=== PATIENT | female | born 1990 | race Hispanic/Latino ===

== ENCOUNTER 2017-10-18 22:09 | Emergency (ER) | payer MEDICAID ==
[~2017-10-18 22:09] MED LIST: PHEN300C6 PO
[2017-10-18 22:39] LABS: BASOPHILS % (AUTO) 0.5 % (0.0-5.0); EOSINOPHILS % (AUTO) 0.5 % (0.0-8.0); HEMATOCRIT 36.5 % (36-48); LYMPHOCYTES % (AUTO) 57.3 % (21.0-51.0); MEAN CORPUSCULAR HEMOGLOBIN 28.3 pg (27.0-33.0); MEAN CORPUSCULAR HGB CONC 34.2 g/dL (32.0-36.0); MEAN CORPUSCULAR VOLUME 82.9 fL (79-99); MONOCYTES % (AUTO) 6.7 % (3.0-13.0); NUCLEATED RED BLOOD CELLS 0.1 % (0.0-0.19); PLATELET COUNT (AUTO) 205 K/uL (130-400); RED BLOOD CELL COUNT(AUTO) 4.41 MIL/uL (4.00-5.50); RED CELL DISTRIBUTION WIDTH 12.5 % (11.0-15.5); WHITE BLOOD COUNT (AUTO) 5.4 K/uL (4.8-10.8)
[2017-10-18 22:46] LABS: APPEARANCE,URINE Clear (CLEAR); BILIRUBIN,URINE Negative (NEGATIVE); COLOR,URINE Yellow (YELLOW); GLUCOSE, URINE (UA) Negative (NEGATIVE); HCG,QUAL RESULT NEGATIVE (NEGATIVE); KETONES,URINE Negative (NEGATIVE); LEUKOCYTE ESTERASE ,URINE Trace (NEGATIVE); NITRATE,URINE Negative (NEGATIVE); OCCULT BLOOD,URINE Negative (NEGATIVE); PH,URINE 6.5 (5.0-8.0); PROTEIN,URINE Negative (NEGATIVE)
[2017-10-18 22:52] LABS: CARBON DIOXIDE 31 mmol/L (21-32); CHLORIDE 101 mmol/L (101-111); CREATININE 0.6 mg/dL (0.5-1.5); GLOMERULAR FILTR. RATE CALC 128 mL/min (>60); GLUCOSE,RANDOM 90 mg/dL (70-105); POTASSIUM 3.5 mmol/L (3.5-5.1); SODIUM SERUM 137 mmol/L (136-145); UREA NITROGEN, BLOOD 15 mg/dL (7-18)
[2017-10-18 22:52] LABS: AMPHET/METH SCREEN,URINE NEGATIVE (NEGATIVE); BARBITURATE SCREEN, URINE NEGATIVE (NEGATIVE); BENZODIAZEPINES SCREEN,URINE NEGATIVE (NEGATIVE); CANNABINOID SCREEN,URINE NEGATIVE (NEGATIVE); COCAINE SCREEN,URINE NEGATIVE (NEGATIVE); OPIATE SCREEN,URINE NEGATIVE (NEGATIVE); PHENCYCLIDINE SCREEN,URINE NEGATIVE (NEGATIVE)
[2017-10-18] MEDS ORDERED: ONDANSETRON HCL 4 MG/2 ML VIAL ONE (22:59)
[2017-10-18] MEDS ORDERED: SODIUM CHLORIDE 0.9% 1000ML 1,000 ML IV ONE (22:59)
[2017-10-18 23:03] LABS: ALANINE AMINOTRANSFERASE 90 U/L (12-78); ALBUMIN 3.7 g/dL (3.5-5.0); AMYLASE 45 U/L (25-115); ASPARTATE AMINOTRANSFERASE 59 U/L (10-37); BILIRUBIN,TOTAL 0.4 mg/dL (0.2-1.0); CREATINE KINASE MB < 0.5 ng/mL (0.5-3.6); CREATINE KINASE, TOTAL 55 U/L (21-232); LIPASE 317 U/L (114-286); TOTAL PROTEIN, SERUM 7.7 g/dL (6.0-8.3)
[2017-10-18 23:15] LABS: BACTERIA,URINE Few /HPF (None Seen); MUCUS,URINE Rare LPF (None Seen); RBC,URINE 0-1 /HPF (0-1); WBC,URINE 0-1 /HPF (0-1)
[2017-12-10] MEDS ORDERED: LEVE500T8 PO (16:23)
[2017-12-10] MEDS ORDERED: LEVE1000 PO (16:23)
== END 2017-10-19 01:16 | disposition home or self-care (01) ==
LOC: EDH 22:09
DX: K85.90 Acute pancreatitis without necrosis or infection, unspecified (principal); R11.2 Nausea with vomiting, unspecified; Z98.890 Other specified postprocedural states
CPT/HCPCS: 36415; 74176; 80053; 80177; 80305; 81001; 81025; 82150; 82550; 82553; 83690; 84484; 85025; 87804 ×2; 93005; 96361; 96374; 99285; J2405; J7030

== ENCOUNTER 2017-11-15 23:41 | Emergency (ER) | payer MEDICAID ==
[~2017-11-15 23:41] MED LIST changes: -LEVE1000 PO; -LEVE500T8 PO
[2017-12-10] MEDS ORDERED: LEVE1000 PO (16:23)
[2017-12-10] MEDS ORDERED: LEVE500T8 PO (16:23)
== END 2017-11-16 00:58 | disposition home or self-care (01) ==
LOC: EDH 23:41
DX: J02.8 Acute pharyngitis due to other specified organisms (principal); B97.89 Other viral agents as the cause of diseases classified elsewhere; Z79.2 Long term (current) use of antibiotics; Z79.899 Other long term (current) drug therapy; Z98.890 Other specified postprocedural states
CPT/HCPCS: 76705; 99281

== ENCOUNTER → 2017-11-15 | Outpatient (CLI) | payer MEDICAID ==
[~2017-11-15] MED LIST changes: +LEVE1000 PO; +LEVE500T8 PO
== END | disposition home or self-care (01) ==
LOC: RAH 09:39
PROVIDERS: ATTEND Family Medicine
DX: J01.40 Acute pansinusitis, unspecified (principal); R94.5 Abnormal results of liver function studies
CPT/HCPCS: 76705

== ENCOUNTER 2017-12-11 05:49 | Day surgery (SDC) | payer MEDICAID ==
[~2017-12-11] VITALS: Ht 154.9 cm; Wt 61.2 kg
[~2017-12-11 05:49] MED LIST changes: +LEVE1000 PO; +LEVE500T8 PO; -PHEN300C6 PO
[2017-12-11 06:10] VITALS: BP 104/57
[2017-12-11] MEDS ORDERED: SODIUM CHLORIDE 0.9% 1000ML 1,000 ML IV ONE (06:25)
[2017-12-11] MEDS ORDERED: MIDAZOLAM HCL 1 MG/ML 2ML VIAL ONE ×2 (07:09→07:16)
[2017-12-11] MEDS ORDERED: MEPERIDINE-PF 50 MG/ML SYG ONE (07:09)
[2017-12-11] MEDS ORDERED: PROPOFOL 10 MG/ML 20ML VIAL IV ONE (07:18)
== END 2017-12-11 07:55 ==
LOC: DAH 05:49
PROVIDERS: ATTEND Internal Medicine
DX: K29.50 Unspecified chronic gastritis without bleeding (principal); K21.0 Gastro-esophageal reflux disease with esophagitis; F41.9 Anxiety disorder, unspecified; F32.9 Major depressive disorder, single episode, unspecified; Z79.899 Other long term (current) drug therapy; Z98.890 Other specified postprocedural states; Z90.49 Acquired absence of other specified parts of digestive tract; B96.81 Helicobacter pylori [H. pylori] as the cause of diseases classified elsewhere
CPT/HCPCS: 43239; 81025; 88305; A4606; J2175; J2250 ×2; J2704; J7030

== ENCOUNTER 2018-02-13 01:10 | Emergency (ER) | payer MEDICAID ==
[2018-02-13 01:35] LABS: BILIRUBIN,URINE Negative (NEGATIVE); COLOR,URINE Yellow (YELLOW); GLUCOSE, URINE (UA) Negative (NEGATIVE); KETONES,URINE Negative (NEGATIVE); LEUKOCYTE ESTERASE ,URINE Negative (NEGATIVE); NITRATE,URINE Negative (NEGATIVE); OCCULT BLOOD,URINE Negative (NEGATIVE); PROTEIN,URINE Negative (NEGATIVE)
[2018-02-13 01:36] LABS: APPEARANCE,URINE CLEAR (CLEAR)
[2018-02-13 01:38] LABS: HCG,QUAL RESULT NEGATIVE (NEGATIVE)
[2018-02-13] MEDS ORDERED: ACETAMINOPHEN 325 MG TAB ONE (01:59)
== END 2018-02-13 04:16 | disposition left against medical advice (07) ==
LOC: EDH 01:10
DX: R20.2 Paresthesia of skin (principal); R51 Headache; B96.81 Helicobacter pylori [H. pylori] as the cause of diseases classified elsewhere; Z90.49 Acquired absence of other specified parts of digestive tract; Z98.890 Other specified postprocedural states
CPT/HCPCS: 70450; 81003; 81025

== ENCOUNTER 2018-06-25 17:24 | Emergency (ER) | payer MEDICAID ==
[2018-06-25] MEDS ORDERED: KETOROLAC TROMETHAMINE 30MG/ML ONE (18:13)
[2018-06-25] MEDS ORDERED: CYCLOBENZAPRINE HCL 10 MG TABLET ONE (18:14)
== END 2018-06-25 18:32 | disposition home or self-care (01) ==
LOC: EDH 17:24
DX: S16.1XXA Strain of muscle, fascia and tendon at neck level, initial encounter (principal); R05 Cough; G43.909 Migraine, unspecified, not intractable, without status migrainosus; D49.6 Neoplasm of unspecified behavior of brain; Z90.49 Acquired absence of other specified parts of digestive tract; Z98.890 Other specified postprocedural states; X50.9XXA Other and unspecified overexertion or strenuous movements or postures, initial encounter; Y93.89 Activity, other specified; Y92.89 Other specified places as the place of occurrence of the external cause; Y99.8 Other external cause status
CPT/HCPCS: 96372; 99283; J1885

== ENCOUNTER 2018-07-06 12:11 | Emergency (ER) | payer MEDICAID ==
[2018-07-06 13:08] LABS: APPEARANCE,URINE Clear (CLEAR); BILIRUBIN,URINE Negative (NEGATIVE); COLOR,URINE Yellow (YELLOW); GLUCOSE, URINE (UA) Negative (NEGATIVE); KETONES,URINE Negative (NEGATIVE); LEUKOCYTE ESTERASE ,URINE Negative (NEGATIVE); NITRATE,URINE Negative (NEGATIVE); OCCULT BLOOD,URINE Moderate (NEGATIVE); PROTEIN,URINE Negative (NEGATIVE)
[2018-07-06 13:15] LABS: HCG,QUAL RESULT NEGATIVE (NEGATIVE)
[2018-07-06 13:52] LABS: BASOPHILS % (AUTO) 0.5 % (0.0-5.0); EOSINOPHILS % (AUTO) 0.6 % (0.0-8.0); HEMATOCRIT 37.6 % (36-48); LYMPHOCYTES % (AUTO) 24.7 % (21.0-51.0); MEAN CORPUSCULAR HEMOGLOBIN 29.3 pg (27.0-33.0); MEAN CORPUSCULAR HGB CONC 33.9 g/dL (32.0-36.0); MEAN CORPUSCULAR VOLUME 86.4 fL (79-99); MONOCYTES % (AUTO) 7.2 % (3.0-13.0); PLATELET COUNT (AUTO) 279 K/uL (130-400); RED BLOOD CELL COUNT(AUTO) 4.35 MIL/uL (4.00-5.50); WHITE BLOOD COUNT (AUTO) 5.9 K/uL (4.8-10.8)
[2018-07-06 14:00] LABS: CREATININE 0.6 mg/dL (0.5-1.5)
== END 2018-07-06 14:28 | disposition home or self-care (01) ==
LOC: EDH 12:11
DX: N83.291 Other ovarian cyst, right side (principal); G43.909 Migraine, unspecified, not intractable, without status migrainosus
CPT/HCPCS: 36415; 76856; 80048; 81003; 81025; 85025

== ENCOUNTER 2018-07-29 22:47 | Emergency (ER) | payer MEDICAID ==
[2018-07-29 23:35] LABS: APPEARANCE,URINE Cloudy (CLEAR); BILIRUBIN,URINE Negative (NEGATIVE); COLOR,URINE Yellow (YELLOW); GLUCOSE, URINE (UA) Negative (NEGATIVE); KETONES,URINE Trace mg/dL (NEGATIVE); LEUKOCYTE ESTERASE ,URINE Moderate (NEGATIVE); NITRATE,URINE Negative (NEGATIVE); OCCULT BLOOD,URINE Negative (NEGATIVE); PH,URINE 7.5 (5.0-8.0); PROTEIN,URINE POS 1+ (NEGATIVE)
[2018-07-29 23:42] LABS: HCG,QUAL RESULT NEGATIVE (NEGATIVE)
[2018-07-29 23:46] LABS: BACTERIA,URINE Rare /HPF (None Seen); MUCUS,URINE Moderate LPF (None Seen); RBC,URINE 0-1 /HPF (0-1); SQUAMOUS EPITHELIAL CELL,UR Few /HPF (0-2)
[2018-07-29] MEDS ORDERED: LIDOCAINE HCL MPF 1% 5ML VIAL ONE (23:52)
[2018-07-29] MEDS ORDERED: CEFTRIAXONE SODIUM 1 GM ONE (23:53)
== END 2018-07-30 00:47 | disposition home or self-care (01) ==
LOC: EDH 22:47
DX: N30.00 Acute cystitis without hematuria (principal); G43.909 Migraine, unspecified, not intractable, without status migrainosus; C71.9 Malignant neoplasm of brain, unspecified; B96.81 Helicobacter pylori [H. pylori] as the cause of diseases classified elsewhere; Z90.49 Acquired absence of other specified parts of digestive tract; Z98.890 Other specified postprocedural states
CPT/HCPCS: 81001; 81025; 96372; 99284; J0696; J3490

== ENCOUNTER 2018-11-19 14:57 | Emergency (ER) | payer MEDICAID ==
[2018-11-19] MEDS ORDERED: DiphenhydrAMINE HCL 50 MG/ML VIAL ONE (15:57)
[2018-11-19] MEDS ORDERED: PROCHLORPERAZINE EDISYLATE 10 MG/2 ML VIAL ONE (15:58)
[2018-11-19 16:02] LABS: BASOPHILS % (AUTO) 0.6 % (0.0-5.0); EOSINOPHILS % (AUTO) 0.5 % (0.0-8.0); HEMATOCRIT 33.5 % (36-48); LYMPHOCYTES % (AUTO) 24.9 % (21.0-51.0); MEAN CORPUSCULAR HEMOGLOBIN 28.3 pg (27.0-33.0); MEAN CORPUSCULAR VOLUME 83.2 fL (79-99); MONOCYTES % (AUTO) 6.3 % (3.0-13.0); NEUTROPHILS % (AUTO) 67.7 % (40.0-77.0); PLATELET COUNT (AUTO) 316 K/uL (130-400); RED BLOOD CELL COUNT(AUTO) 4.03 MIL/uL (4.00-5.50); RED CELL DISTRIBUTION WIDTH 13.3 % (11.0-15.5); WHITE BLOOD COUNT (AUTO) 7.4 K/uL (4.8-10.8)
[2018-11-19 16:03] LABS: APPEARANCE,URINE Clear (CLEAR); BILIRUBIN,URINE Negative (NEGATIVE); COLOR,URINE Yellow (YELLOW); GLUCOSE, URINE (UA) Negative (NEGATIVE); KETONES,URINE Negative (NEGATIVE); LEUKOCYTE ESTERASE ,URINE Negative (NEGATIVE); NITRATE,URINE Negative (NEGATIVE); OCCULT BLOOD,URINE Large (NEGATIVE); PROTEIN,URINE Negative (NEGATIVE); UROBILINOGEN,URINE 0.2 mg/dL (0.2-1.0)
[2018-11-19 16:10] LABS: CREATININE 0.6 mg/dL (0.5-1.5); POTASSIUM 3.6 mmol/L (3.5-5.1)
[2018-11-19 16:11] LABS: AMPHET/METH SCREEN,URINE NEGATIVE (NEGATIVE); BARBITURATE SCREEN, URINE NEGATIVE (NEGATIVE); BENZODIAZEPINES SCREEN,URINE NEGATIVE (NEGATIVE); CANNABINOID SCREEN,URINE NEGATIVE (NEGATIVE); COCAINE SCREEN,URINE NEGATIVE (NEGATIVE); OPIATE SCREEN,URINE NEGATIVE (NEGATIVE); PHENCYCLIDINE SCREEN,URINE NEGATIVE (NEGATIVE)
[2018-11-19 16:13] LABS: HCG,QUAL RESULT NEGATIVE (NEGATIVE)
[2018-11-19 16:15] LABS: WBC,URINE 0-1 /HPF (0-1)
[2018-11-19 16:16] LABS: BACTERIA,URINE Rare /HPF (None Seen); RBC,URINE 26-50 /HPF (0-1); SQUAMOUS EPITHELIAL CELL,UR Rare /HPF (0-2)
== END 2018-11-19 17:29 | disposition home or self-care (01) ==
LOC: EDH 14:57
DX: G43.909 Migraine, unspecified, not intractable, without status migrainosus (principal); M54.12 Radiculopathy, cervical region; F41.9 Anxiety disorder, unspecified; Z90.49 Acquired absence of other specified parts of digestive tract; Z98.890 Other specified postprocedural states
CPT/HCPCS: 36415; 80048; 80305; 81001; 81025; 85025; 96374; 96375; 99283; J0780; J1200

== ENCOUNTER 2018-12-15 08:24 | Emergency (ER) | payer MEDICAID | END 2018-12-15 09:12 | disposition home or self-care (01) | LOC: EDH 08:24 | DX: J09.X2 Influenza due to identified novel influenza A virus with other respiratory manifestations (principal); R50.9 Fever, unspecified; F41.9 Anxiety disorder, unspecified; Z90.49 Acquired absence of other specified parts of digestive tract | CPT/HCPCS: 87880 ==

== ENCOUNTER 2019-02-07 13:23 | Emergency (ER) | payer MEDICAID ==
[2019-02-07 14:02] LABS: BILIRUBIN,URINE Negative (NEGATIVE); COLOR,URINE Yellow (YELLOW); GLUCOSE, URINE (UA) Negative (NEGATIVE); KETONES,URINE Negative (NEGATIVE); LEUKOCYTE ESTERASE ,URINE Moderate (NEGATIVE); NITRATE,URINE Negative (NEGATIVE); OCCULT BLOOD,URINE Negative (NEGATIVE); PH,URINE 5.5 (5.0-8.0); PROTEIN,URINE Negative (NEGATIVE)
[2019-02-07 14:17] LABS: APPEARANCE,URINE SLIGHTLY CLOUDY (CLEAR)
[2019-02-07 14:18] LABS: BACTERIA,URINE Moderate /HPF (None Seen)
== END 2019-02-07 14:57 | disposition home or self-care (01) ==
LOC: EDH 13:23
DX: N39.0 Urinary tract infection, site not specified (principal); G43.909 Migraine, unspecified, not intractable, without status migrainosus; F41.9 Anxiety disorder, unspecified; Z90.49 Acquired absence of other specified parts of digestive tract
CPT/HCPCS: 81001; 81025

== ENCOUNTER 2019-09-23 19:34 | Emergency (ER) | payer MEDICAID ==
[~2019-09-23 19:34] MED LIST changes: +LEVE-43 PO; -LEVE500T8 PO
[2019-09-23 20:31] LABS: RAPID GROUP A STREP NEGATIVE (NEGATIVE)
== END 2019-09-23 20:45 | disposition home or self-care (01) ==
LOC: EDH 19:34
DX: J01.00 Acute maxillary sinusitis, unspecified (principal); G43.909 Migraine, unspecified, not intractable, without status migrainosus; F41.9 Anxiety disorder, unspecified
CPT/HCPCS: 87804; 87880

== ENCOUNTER 2019-10-01 06:55 | Day surgery (SDC) | payer MEDICAID ==
[~2019-10-01] VITALS: Ht 160 cm; Wt 60.8 kg
[~2019-10-01 06:55] MED LIST changes: +ACET325C6 PO; +CEFD300C3 PO; -LEVE-43 PO; -LEVE1000 PO; +NEXIUM PO; +SODIUM CHLORIDE 0.9% 1000ML 1,000 ML IV ONE
[2019-10-01 08:27] VITALS: BP 104/64
[2019-10-01] MEDS ORDERED: PROPOFOL 10 MG/ML 20ML VIAL IV ONE (09:33)
[2019-10-01 10:01] VITALS: BP 95/63
[2019-10-01 10:06] VITALS: BP 107/60
[2019-10-01 10:11] VITALS: BP 109/67
[2019-10-01 10:15] VITALS: BP 106/71
[2019-10-01 10:30] VITALS: BP 111/69
== END 2019-10-01 10:40 | disposition home or self-care (01) ==
LOC: DAH 06:55 → ENDO 06:55
PROVIDERS: ATTEND Internal Medicine
DX: K59.00 Constipation, unspecified (principal); K31.89 Other diseases of stomach and duodenum; K64.0 First degree hemorrhoids; B96.81 Helicobacter pylori [H. pylori] as the cause of diseases classified elsewhere; K29.70 Gastritis, unspecified, without bleeding; K21.0 Gastro-esophageal reflux disease with esophagitis; F41.9 Anxiety disorder, unspecified; F32.9 Major depressive disorder, single episode, unspecified; G40.909 Epilepsy, unspecified, not intractable, without status epilepticus; Z79.899 Other long term (current) drug therapy; Z98.890 Other specified postprocedural states; Z90.49 Acquired absence of other specified parts of digestive tract
CPT/HCPCS: 43239; 45378; 81025; 88305; A4215; A4221; A4222; A4223; A4606; A4615; A4663; J2704; J7030; 45380

== ENCOUNTER 2020-02-09 16:06 | Emergency (ER) | payer MEDICAID ==
[~2020-02-09 16:06] MED LIST changes: -SODIUM CHLORIDE 0.9% 1000ML 1,000 ML IV ONE
[2020-02-09] MEDS ORDERED: SODIUM CHLORIDE IRRIG SOLUTION 1,000 ML IR ONE (16:07)
[2020-02-09 17:19] LABS: BASOPHILS % (AUTO) 0.7 % (0.0-5.0); EOSINOPHILS % (AUTO) 3.9 % (0.0-8.0); HEMATOCRIT 36.4 % (36-48); LYMPHOCYTES % (AUTO) 31.1 % (21.0-51.0); MEAN CORPUSCULAR HEMOGLOBIN 28.3 pg (27.0-33.0); MEAN CORPUSCULAR HGB CONC 33.8 g/dL (32.0-36.0); MEAN CORPUSCULAR VOLUME 83.9 fL (79-99); MONOCYTES % (AUTO) 5.1 % (3.0-13.0); PLATELET COUNT (AUTO) 307 K/uL (130-400); RED BLOOD CELL COUNT(AUTO) 4.34 MIL/uL (4.00-5.50); RED CELL DISTRIBUTION WIDTH 13.2 % (11.0-15.5); WHITE BLOOD COUNT (AUTO) 5.9 K/uL (4.8-10.8)
[2020-02-09 17:34] LABS: APPEARANCE,URINE CLOUDY (CLEAR); BILIRUBIN,URINE NEGATIVE (NEGATIVE); COLOR,URINE RED (YELLOW); GLUCOSE, URINE (UA) NEGATIVE (NEGATIVE); KETONES,URINE NEGATIVE (NEGATIVE); LEUKOCYTE ESTERASE ,URINE NEGATIVE (NEGATIVE); NITRATE,URINE NEGATIVE (NEGATIVE); OCCULT BLOOD,URINE LARGE (NEGATIVE); PROTEIN,URINE NEGATIVE (NEGATIVE); UROBILINOGEN,URINE 0.2 mg/dL (0.2-1.0)
[2020-02-09 17:38] LABS: BACTERIA,URINE Rare /HPF (None Seen); CREATININE 0.8 mg/dL (0.5-1.5); POTASSIUM 3.5 mmol/L (3.5-5.1); RBC,URINE TNTC /HPF (0-1); SQUAMOUS EPITHELIAL CELL,UR Rare /HPF (0-2); WBC,URINE 0-1 /HPF (0-1)
[2020-02-09] MEDS ORDERED: ONDANSETRON HCL 4 MG/2 ML VIAL ONE (17:40)
[2020-02-09 17:43] LABS: ALBUMIN 4.2 g/dL (3.5-5.0); AMPHET/METH SCREEN,URINE NEGATIVE (NEGATIVE); BARBITURATE SCREEN, URINE NEGATIVE (NEGATIVE); BENZODIAZEPINES SCREEN,URINE NEGATIVE (NEGATIVE); BILIRUBIN,TOTAL 0.5 mg/dL (0.2-1.0); CANNABINOID SCREEN,URINE NEGATIVE (NEGATIVE); COCAINE SCREEN,URINE NEGATIVE (NEGATIVE); OPIATE SCREEN,URINE NEGATIVE (NEGATIVE); PHENCYCLIDINE SCREEN,URINE NEGATIVE (NEGATIVE); TOTAL PROTEIN, SERUM 8.1 g/dL (6.0-8.3)
[2020-02-09] MEDS ORDERED: KETOROLAC TROMETHAMINE 30MG/ML ONE (17:47)
[2020-02-09 17:54] LABS: RAPID GROUP A STREP NEGATIVE (NEGATIVE)
== END 2020-02-09 18:45 | disposition home or self-care (01) ==
LOC: EDH 16:06
DX: K59.00 Constipation, unspecified (principal); N20.0 Calculus of kidney; F41.9 Anxiety disorder, unspecified; G43.909 Migraine, unspecified, not intractable, without status migrainosus; Z90.49 Acquired absence of other specified parts of digestive tract
CPT/HCPCS: 36415; 71046; 74176; 80053; 80305; 81001; 81025; 85025; 87804 ×2; 87880; 96374; 96375; 99285; J1885; J2405

== ENCOUNTER → 2020-02-16 | Outpatient (CLI) | payer MEDICAID | END | disposition home or self-care (01) | LOC: OIH 11:36 | PROVIDERS: ATTEND Family Medicine | DX: K59.04 Chronic idiopathic constipation (principal); K59.09 Other constipation; Z90.49 Acquired absence of other specified parts of digestive tract | CPT/HCPCS: 74018 ==

== ENCOUNTER 2020-08-10 11:23 | Emergency (ER) | payer MEDICAID ==
[2020-08-10] MEDS ORDERED: ACETAMINOPHEN 325 MG TAB ONE (12:26)
[2020-08-10 12:44] LABS: BASOPHILS % (AUTO) 0.7 % (0.0-5.0); EOSINOPHILS % (AUTO) 1.2 % (0.0-8.0); HEMATOCRIT 37.9 % (36-48); LYMPHOCYTES % (AUTO) 32.6 % (21.0-51.0); MEAN CORPUSCULAR HEMOGLOBIN 28.9 pg (27.0-33.0); MEAN CORPUSCULAR HGB CONC 33.2 g/dL (32.0-36.0); MEAN CORPUSCULAR VOLUME 86.9 fL (79-99); MONOCYTES % (AUTO) 6.1 % (3.0-13.0); NEUTROPHILS % (AUTO) 59.2 % (40.0-77.0); PLATELET COUNT (AUTO) 274 K/uL (130-400); RED BLOOD CELL COUNT(AUTO) 4.36 MIL/uL (4.00-5.50); RED CELL DISTRIBUTION WIDTH 12.2 % (11.0-15.5); WHITE BLOOD COUNT (AUTO) 5.7 K/uL (4.8-10.8)
[2020-08-10 12:58] LABS: CREATININE 0.6 mg/dL (0.5-1.5); POTASSIUM 3.9 mmol/L (3.5-5.1)
[2020-08-10 13:03] LABS: ALBUMIN 3.9 g/dL (3.5-5.0); BILIRUBIN,TOTAL 0.4 mg/dL (0.2-1.0); TOTAL PROTEIN, SERUM 7.8 g/dL (6.0-8.3)
[2020-08-10] MEDS ORDERED: ONDANSETRON HCL 4 MG/2 ML VIAL ONE (13:57)
[2020-08-10] MEDS ORDERED: MORPHINE SULFATE 4 MG/1ML SYG ONE (13:58)
[2020-08-10] MEDS ORDERED: TOPIRAMATE 25 MG TABLET PO SCH (17:15)
== END 2020-08-10 17:55 | disposition home or self-care (01) ==
LOC: EDH 11:23
DX: S00.83XA Contusion of other part of head, initial encounter (principal); G40.89 Other seizures; R20.2 Paresthesia of skin; G43.909 Migraine, unspecified, not intractable, without status migrainosus; Z90.49 Acquired absence of other specified parts of digestive tract; F41.9 Anxiety disorder, unspecified; Y08.89XA Assault by other specified means, initial encounter; Y93.89 Activity, other specified; Y92.89 Other specified places as the place of occurrence of the external cause; Y99.8 Other external cause status
CPT/HCPCS: 36415; 70450; 70486; 72125; 80053; 81025; 83690; 84484; 85025; 93005; 96374; 96375; 99285; J2270; J2405

== ENCOUNTER → 2020-09-22 | Outpatient (CLI) | payer MEDICAID | END | disposition home or self-care (01) | LOC: OIH 14:00 | PROVIDERS: ATTEND Family Medicine | DX: M25.521 Pain in right elbow (principal); M25.511 Pain in right shoulder | CPT/HCPCS: 73030; 73080 ==

== ENCOUNTER 2020-12-28 15:17 | Emergency (ER) | payer MEDICAID ==
[2020-12-28] MEDS ORDERED: KETOROLAC 30MG VIAL (30MG/ML) ONE (16:01)
[2020-12-28] MEDS ORDERED: ONDANSETRON ODT 4MG TAB ONE (16:02)
== END 2020-12-28 17:57 | disposition home or self-care (01) ==
LOC: EDH 15:17
DX: S09.90XA Unspecified injury of head, initial encounter (principal); M54.2 Cervicalgia; M25.512 Pain in left shoulder; M54.6 Pain in thoracic spine; F41.9 Anxiety disorder, unspecified; G43.909 Migraine, unspecified, not intractable, without status migrainosus; Z90.49 Acquired absence of other specified parts of digestive tract; W18.39XA Other fall on same level, initial encounter; Y93.01 Activity, walking, marching and hiking; Y92.89 Other specified places as the place of occurrence of the external cause; Y99.8 Other external cause status
CPT/HCPCS: 70450; 71101; 72072; 72125; 73030; 81025; 96372; 99285; J1885

== ENCOUNTER 2020-12-30 11:20 | Emergency (ER) | payer MEDICAID ==
[2020-12-30 11:41] LABS: APPEARANCE,URINE Cloudy (CLEAR); BILIRUBIN,URINE Negative (NEGATIVE); COLOR,URINE Yellow (YELLOW); GLUCOSE, URINE (UA) Negative (NEGATIVE); KETONES,URINE Negative (NEGATIVE); LEUKOCYTE ESTERASE ,URINE Trace (NEGATIVE); NITRATE,URINE Negative (NEGATIVE); OCCULT BLOOD,URINE Negative (NEGATIVE); PH,URINE 5.5 (5.0-8.0); PROTEIN,URINE Negative (NEGATIVE)
[2020-12-30 11:42] LABS: HCG,QUAL RESULT NEGATIVE (NEGATIVE)
[2020-12-30 11:48] LABS: AMPHET/METH SCREEN,URINE NEGATIVE (NEGATIVE); BARBITURATE SCREEN, URINE NEGATIVE (NEGATIVE); BENZODIAZEPINES SCREEN,URINE NEGATIVE (NEGATIVE); CANNABINOID SCREEN,URINE NEGATIVE (NEGATIVE); COCAINE SCREEN,URINE POSITIVE (NEGATIVE); OPIATE SCREEN,URINE POSITIVE (NEGATIVE); PHENCYCLIDINE SCREEN,URINE NEGATIVE (NEGATIVE)
[2020-12-30 11:51] LABS: BACTERIA,URINE Many /HPF (None Seen); RBC,URINE None Seen /HPF (0-1); SQUAMOUS EPITHELIAL CELL,UR Many /HPF (0-2)
[2020-12-30] MEDS ORDERED: KETOROLAC TROMETHAMINE 30MG/ML ONE (12:38)
[2020-12-30] MEDS ORDERED: ONDANSETRON HCL 4 MG/2 ML VIAL ONE (12:38)
[2020-12-30] MEDS ORDERED: SODIUM CHLORIDE 0.9% 1000ML 1,000 ML IV ONE (12:39)
[2020-12-30] MEDS ORDERED: FAMOTIDINE/PF 20 MG/2 ML VIAL IV ONE (13:03)
== END 2020-12-30 14:05 | disposition home or self-care (01) ==
LOC: EDH 11:20
DX: R10.84 Generalized abdominal pain (principal); Z71.51 Drug abuse counseling and surveillance of drug abuser
CPT/HCPCS: 80305; 81001; 81025; 87088; 96361; 96374; 96375; 99284; J1885; J2405; J3490; J7030

== ENCOUNTER 2022-05-08 13:42 | Emergency (ER) | payer MEDICAID ==
[~2022-05-08] VITALS: Ht 160 cm; Wt 67.6 kg
[~2022-05-08 13:42] MED LIST changes: +HYOS0.124 SL; +IBUP-2070 PO; +ONDA4TAB10 PO
[2022-05-08 14:22] LABS: BASOPHILS % (AUTO) 0.7 % (0.0-5.0); EOSINOPHILS % (AUTO) 0.4 % (0.0-8.0); HEMATOCRIT 37.7 % (36-48); LYMPHOCYTES % (AUTO) 28.3 % (21.0-51.0); MEAN CORPUSCULAR HEMOGLOBIN 28.1 pg (27.0-33.0); MEAN CORPUSCULAR HGB CONC 33.7 g/dL (32.0-36.0); MEAN CORPUSCULAR VOLUME 83.4 fL (79-99); MONOCYTES % (AUTO) 5.8 % (3.0-13.0); NEUTROPHILS % (AUTO) 64.5 % (40.0-77.0); PLATELET COUNT (AUTO) 314 K/uL (130-400); RED BLOOD CELL COUNT(AUTO) 4.52 MIL/uL (4.00-5.50); RED CELL DISTRIBUTION WIDTH 12.9 % (11.0-15.5); WHITE BLOOD COUNT (AUTO) 7.6 K/uL (4.8-10.8)
[2022-05-08 14:32] LABS: CREATININE 0.5 mg/dL (0.5-1.5); POTASSIUM 3.9 mmol/L (3.5-5.1)
[2022-05-08 14:37] LABS: TOTAL PROTEIN, SERUM 8.2 g/dL (6.0-8.3)
[2022-05-08 15:48] LABS: APPEARANCE,URINE Clear (CLEAR); BILIRUBIN,URINE Negative (NEGATIVE); COLOR,URINE Yellow (YELLOW); GLUCOSE, URINE (UA) Negative (NEGATIVE); KETONES,URINE Negative (NEGATIVE); LEUKOCYTE ESTERASE ,URINE Negative (NEGATIVE); NITRATE,URINE Negative (NEGATIVE); OCCULT BLOOD,URINE Negative (NEGATIVE); PROTEIN,URINE Negative (NEGATIVE); UROBILINOGEN,URINE 0.2 mg/dL (0.2-1.0)
[2022-05-08 15:55] LABS: AMPHET/METH SCREEN,URINE NEGATIVE (NEGATIVE); BARBITURATE SCREEN, URINE NEGATIVE (NEGATIVE); BENZODIAZEPINES SCREEN,URINE NEGATIVE (NEGATIVE); CANNABINOID SCREEN,URINE NEGATIVE (NEGATIVE); COCAINE SCREEN,URINE POSITIVE (NEGATIVE); OPIATE SCREEN,URINE NEGATIVE (NEGATIVE); PHENCYCLIDINE SCREEN,URINE NEGATIVE (NEGATIVE)
[2022-05-08 16:00] LABS: BACTERIA,URINE Few /HPF (None Seen); RBC,URINE 0-1 /HPF (0-1); SQUAMOUS EPITHELIAL CELL,UR Few /HPF (0-2); WBC,URINE 0-1 /HPF (0-1)
[2022-05-08 16:05] LABS: HCG,QUALITATIVE URINE NEGATIVE (NEGATIVE)
[2022-05-08] MEDS ORDERED: DICL20GE TP (18:02)
[2022-05-08 18:31] VITALS: BP 132/74
== END 2022-05-08 18:38 | disposition home or self-care (01) ==
LOC: EDH 13:42
DX: M25.512 Pain in left shoulder (principal); R20.2 Paresthesia of skin; R20.0 Anesthesia of skin; R51.9 Headache, unspecified; Z79.1 Long term (current) use of non-steroidal anti-inflammatories (NSAID)
CPT/HCPCS: 36415; 70450; 80053; 80305; 81001; 81025; 82550; 85025; 93005

== ENCOUNTER 2024-01-03 15:25 | Emergency (ER) | payer MEDICAID ==
[~2024-01-03] VITALS: Ht 160 cm; Wt 72.6 kg
[~2024-01-03 15:25] MED LIST changes: +DICL20GE TP
[2024-01-03 15:27] VITALS: BP 140/87; PULSE 81; RESP 16
[2024-01-03 16:10] LABS: BASOPHILS # (AUTO) 0.06 K/uL (0.00-0.20); BASOPHILS % (AUTO) 0.6 % (0.0-5.0); EOSINOPHILS # (AUTO) 0.07 K/uL (0.00-0.70); EOSINOPHILS % (AUTO) 0.7 % (0.0-8.0); HEMATOCRIT 38.6 % (36-48); IMMATURE GRANULOCYTE ABSOLUTE 0.06 K/uL (0-1); LYMPHOCYTES % (AUTO) 20.7 % (21.0-51.0); MEAN CORPUSCULAR HEMOGLOBIN 28.5 pg (27.0-33.0); MEAN CORPUSCULAR HGB CONC 33.4 g/dL (32.0-36.0); MEAN CORPUSCULAR VOLUME 85.4 fL (79-99); MONOCYTES # (AUTO) 0.6 K/uL (0.1-1.0); MONOCYTES % (AUTO) 6.5 % (3.0-13.0); NEUTROPHILS # (AUTO) 6.7 K/uL (1.8-7.7); NEUTROPHILS % (AUTO) 70.9 % (40.0-77.0); PLATELET COUNT (AUTO) 316 K/uL (130-400); RED BLOOD CELL COUNT(AUTO) 4.52 MIL/uL (4.00-5.50); RED CELL DISTRIBUTION WIDTH 13.4 % (11.0-15.5); WHITE BLOOD COUNT (AUTO) 9.5 K/uL (4.8-10.8)
[2024-01-03 16:21] LABS: APPEARANCE,URINE CLEAR (CLEAR); BILIRUBIN,URINE NEGATIVE (NEGATIVE); COLOR,URINE LIGHT-YELLOW (YELLOW); GLUCOSE, URINE (UA) NEGATIVE (NEGATIVE); KETONES,URINE NEGATIVE (NEGATIVE); LEUKOCYTE ESTERASE ,URINE NEGATIVE Leu/uL (NEGATIVE); NITRATE,URINE NEGATIVE (NEGATIVE); OCCULT BLOOD,URINE LARGE (NEGATIVE); PH,URINE 5.5 (5.0-8.0); PROTEIN,URINE NEGATIVE (NEGATIVE); UROBILINOGEN,URINE 0.2 mg/dL (0.2-1.0)
[2024-01-03 16:23] LABS: ADD UA MICROSCOPIC YES; HCG,QUALITATIVE URINE NEGATIVE (NEGATIVE)
[2024-01-03 16:24] LABS: MUCUS,URINE RARE LPF (None Seen); SQUAMOUS EPITHELIAL CELL,UR RARE /HPF (0-2); WBC,URINE 0-1 /HPF (0-1)
[2024-01-03 16:25] LABS: CREATININE 0.6 mg/dL (0.5-1.0); POTASSIUM 3.4 mmol/L (3.5-5.1)
[2024-01-03 16:28] LABS: ALBUMIN 3.6 g/dL (3.5-5.0); BILIRUBIN,TOTAL 0.3 mg/dL (0.2-1.0); TOTAL PROTEIN, SERUM 7.8 g/dL (6.0-8.3)
[2024-01-03] MEDS: IBUPROFEN 600 MG TABLET PO ONE (18:37)
[2024-01-03] MEDS: KCL 20 MEQ ERTAB PO ONE (18:38)
[2024-01-03] MEDS ORDERED: IBUP-2070 PO (20:02)
== END 2024-01-03 20:28 | disposition home or self-care (01) ==
LOC: EDH 15:25
DX: N94.6 Dysmenorrhea, unspecified (principal); E87.6 Hypokalemia; Z79.899 Other long term (current) drug therapy
CPT/HCPCS: 36415; 76700; 76856; 80053; 81001; 81025; 83690; 85025

== ENCOUNTER 2025-02-14 18:19 | Emergency (ER) | payer MEDICAID ==
[~2025-02-14] VITALS: Ht 162.6 cm; Wt 72.1 kg
[~2025-02-14 18:19] MED LIST changes: +ONDA-243 PO; -ONDA4TAB10 PO
--- NOTE | 2025-02-14 18:34 | ERN ---
ED Note History of Present Illness Stated Complaint: NECK PAIN, SLURRED SPEECH, BLURRED VISION Chief Complaint: Neck Pain Time Seen by MD: 18:21 Dictation: PATIENT IS A 34-YEAR-OLD FEMALE COMING IN WITH SOME NECK PAIN THAT SHE HAS HAD FOR TWO MONTHS. SHE SAID SHE HAS A HISTORY OF CHIARI SYNDROME IN HIS HAD PRIOR SURGERY IN HIS MOVING FROM [place] BACK TO [facility]. SHE STATES HER NEUROLOGIST IS IN [place] AND DID A RECENT MRI SHOWING THAT THERE WAS A POSSIBLY A 3-4% RETURN OF HER SYNDROME. HOWEVER SHE HAS NOT SEEN SCHEDULED TO SEE A NEUROSURGEON FOR THE NEXT SEVERAL WEEKS. NO NAUSEA VOMITING. SHE HAS NOT TAKEN ANYTHING PRIOR TO ARRIVAL FOR PAIN STATES SHE WAS IN [place] ON SATURDAY OF LAST WEEK DID NOT GO SEE HER DOCTOR OR WENT TO A HOSPITAL THERE. Allergies: Coded Allergies: No Known Drug Allergies (Unverified Allergy, Unknown, 06/13/16) Home Meds Active Scripts Ibuprofen (Ibuprofen) 600 Mg Tablet, 600 MG PO Q6H PRN for PAIN, #15 TAB 0 Refills Prov:ALONA GIMENEZ NP 01/03/24 Diclofenac Sodium (Voltaren Arthritis Pain) 20 Gm Gel..gram., 20 GM TP BID for 10 Days, #30 TUBE Prov:RILEY DIAZ MD 05/08/22 Ondansetron (Ondansetron Odt) 4 Mg Tab.rapdis, 4 MG PO TID PRN for nausea, #15 TAB 0 Refills Prov:NICOLÁS BENOIT MD 11/08/21 Hyoscyamine Sulfate (Levsin-Sl) 0.125 Mg Tab.subl, 0.125 MG SL TID PRN for abd p, #15 TAB.SL 0 Refills Prov:NICOLÁS BENOIT MD 11/08/21 Ibuprofen (Ibuprofen) 600 Mg Tablet, 600 MG PO Q6H PRN for PAIN, #30 TAB 0 Refills Prov:NICOLÁS BENOIT MD 11/08/21 Reported Medications Acetaminophen (Tylenol) 325 Mg Capsule, 325 MG PO Q4HPRN PRN for ABDOMINAL PAIN, CAP 09/30/19 Cefdinir (Cefdinir) 300 Mg Capsule, 300 MG PO BID, CAP 09/30/19 [Nexium] No Conflict Check, 40 MG PO DAILY 09/30/19 Past Medical History Past Medical History: Seizure Surgical History: Other Surgical History Other: Brain: Chiari malformation surgery Social History: Negative History: Not Applicable RN Note Reviewed/Agreed w/PFSH: Yes Review of System Dictation CONSTITUTIONAL: NEGATIVE EXCEPT FOR HPI HEAD/FACE: NEGATIVE EXCEPT FOR HPI EENT: NEGATIVE EXCEPT FOR HPI RESPIRATORY: NEGATIVE EXCEPT FOR HPI GASTROINTESTINAL/ABDOMINAL: NEGATIVE EXCEPT FOR HPI GENITOURINARY: NEGATIVE EXCEPT FOR HPI MUSCULOSKELETAL: NEGATIVE EXCEPT FOR HPI NECK PAIN INTEGUMENTARY: NEGATIVE EXCEPT FOR HPI NEUROLOGICAL/PSYCH: NEGATIVE EXCEPT FOR HPI HEMATOLOGIC/LYMPHATIC: NEGATIVE EXCEPT FOR HPI ALL SYSTEMS NEGATIVE, EXCEPT NOTED ABOVE. 13 POINT REVIEW OF SYSTEMS ASSESSED AND ALL NEGATIVE EXCEPT FOR ABOVE. Initial Vital Sign VS Vital Signs Date Time Temp Pulse Resp B/P (MAP) Pulse Ox O2 Delivery O2 Flow Rate FiO2 02/14/25 18:28 98.1 75 16 145/87 98 Room Air 02/14/25 18:55 0 21 Physical Exam Dictation VITAL SIGNS REVIEWED GENERAL APPEARANCE: ALERT, ORIENTED X 3, MODERATE ACUTE DISTRESS, WELL DEVELOPED, NOURISHED. HEAD AND FACE: NON-TRAUMATIC. EYES: PERRL, PINK CONJUNCTIVAS, EYELID NO TRAUMA, ANTERIOR CHAMBER WITH ARCUS SENILIS. EARS: PINNAS INTACT AND NO SIGNS OF TRAUMA OR ERYTHEMA EAR CANALS CLEAR AND NO DISCHARGE TM NO ERYTHEMA NOSE: NO DISCHARGE, NO BLEEDING. OROPHARYNX: MOUTH NORMAL, TONGUE PINK, PHARYNX CLEAR,NO ERYTHEMA, TONSILS NO EXUDATES, NO ABSCESSES NOTED, MUCOUS MEM BRANE MOIST NECK: SUPPLE, NON-TENDER, NO THYROMEGALY, NO MASSES, NO JVD, NO BRUITS BREAST:DEFERRED CHEST:NO TENDERNESS, NO CREPITUS, NO PARADOXICAL MOVEMENT, NO RETRACTIONS LUNGS:CLEAR, WELL-VENTILATED, SYMMETRIC, NO RALES, NO WHEEZING, NO RHONCHI, NO STRIDOR, GOOD BREATH SOUNDS BILATERALLY HEART: REGULAR RATE, REGULAR RHYTHM, NO MURMUR, NO GALLOPS VASCULAR: NO PERIPHERAL EDEMA, ABDOMEN: SOFT, POSITIVE BOWEL SOUNDS, NONDISTENDED, NO GUARDING, NONTENDER, NO REBOUND, NO MASSES NO HEPATOMEGALY, NO SPLENOMEGALY, NO PRATT'S SIGN, NO HERNIAS. RECTAL: DEFERRED GENITAL: DEFERRED NEUROLOGICAL: NORMAL SPEECH, MOTOR FUNCTION INTACT, SENSORY FUNCTION INTACT MUSCULOSKELETAL: LEFT LATERAL POSTERIOR NECK TENDERNESS WITH SPASM. NO MIDLINE SPINE PAIN FULL RANGE OF MOTION, BACK NONTENDER, DECREASED RANGE OF MOTION CERVICAL SPINE EXTREMITIES: NONTENDER, FULL RANGE OF MOTION SKIN: COLOR PINK, DRY, NO TURGOR, NO RASH, NO LACERATIONS, NO ABRASIONS, NO CONTUSIONS. LYMPHATIC: DEFERRED Results (Laboratory/Radiology) Laboratory/Radiology Laboratory Tests Test 02/14/25 18:46 White Blood Count 8.8 K/uL (4.8-10.8) Red Blood Count 3.94 MIL/uL (4.00-5.50) L Hemoglobin 10.9 g/dL (12.0-16.0) L Hematocrit 33.7 % (36-48) L Mean Corpuscular Volume 85.5 fL (79-99) Mean Corpuscular Hemoglobin 27.7 pg (27.0-33.0) Mean Corpuscular Hemoglobin Concent 32.3 g/dL (32.0-36.0) Red Cell Distribution Width 13.6 % (11.0-15.5) Platelet Count 338 K/uL (130-400) Mean Platelet Volume 9.7 fL (7.5-10.5) Immature Granulocyte % (Auto) 0.3 % (0-1) Neutrophils (%) (Auto) 66.6 % (40.0-77.0) Lymphocytes (%) (Auto) 26.1 % (21.0-51.0) Monocytes (%) (Auto) 5.7 % (3.0-13.0) Eosinophils (%) (Auto) 0.7 % (0.0-8.0) Basophils (%) (Auto) 0.6 % (0.0-5.0) Neutrophils # (Auto) 5.8 K/uL (1.8-7.7) Lymphocytes # (Auto) 2.3 K/uL (1.0-4.8) Monocytes # (Auto) 0.5 K/uL (0.1-1.0) Eosinophils # (Auto) 0.06 K/uL (0.00-0.70) Basophils # (Auto) 0.05 K/uL (0.00-0.20) Absolute Immature Granulocyte (auto 0.03 K/uL (0-1) Nucleated Red Blood Cells 0.0 % (0.0-0.19) Sodium Level 138 mmol/L (136-145) Potassium Level 3.6 mmol/L (3.5-5.1) Chloride Level 104 mmol/L (101-111) Carbon Dioxide Level 26 mmol/L (21-32) Blood Urea Nitrogen 16 mg/dL (7-18) Creatinine 0.7 mg/dL (0.5-1.0) Glomerular Filtration Rate Calc 117 mL/min (>90) Random Glucose 87 mg/dL (70-105) Total Calcium 8.2 mg/dL (8.5-10.1) L Labs Reviewed?: Yes ED Course ED Course Orders Procedure Category Date Status Time Cyclobenzaprine Hcl PHA 02/14/25 Complete (Cyclobenzaprine Hcl 19:00 Hydrocodone/Apap PHA 02/14/25 Complete 5/325 ([place] 5/325mg) 19:00 Ketorolac 60mg/2ml PHA 02/14/25 Complete (Toradol 60mg/2ml) 19:00 Cbc With Differential LAB 02/14/25 Complete 18:32 Basic Metabolic Panel LAB 02/14/25 Complete 18:32 Current Medications Medications (Trade) Dose Ordered Sig/Leny Route PRN Reason Start Time Stop Time Status Last Admin Dose Admin Acetaminophen/ Hydrocodone Bitart (NORco 5/325MG) 1 tab ONCE ONCE PO 02/14/25 19:00 02/14/25 19:01 DC 02/14/25 18:45 Cyclobenzaprine HCl (Cyclobenzaprine HCl) 10 mg ONCE ONCE PO 02/14/25 19:00 02/14/25 19:01 DC 02/14/25 18:45 Ketorolac Tromethamine (toRADol 60MG/ 2ML) 60 mg ONCE ONCE IM 02/14/25 19:00 02/14/25 19:01 DC 02/14/25 18:45 Vital Signs Date Time Temp Pulse Resp B/P (MAP) Pulse Ox O2 Delivery O2 Flow Rate FiO2 02/14/25 18:55 98.2 72 19 142/84 98 Room Air* 0 21 02/14/25 18:28 98.1 75 16 145/87 98 Room Air 1955/LABS ARE UNREMARKABLE PATIENT REMAINS NEUROLOGICALLY INTACT. PATIENT WILL BE DISCHARGED HOME WITH IBUPROFEN TOLD TO FOLLOW UP PRIMARY CARE DOCTOR FOR MANAGEMENT OR TO SEE HER NEUROLOGIST RECOMMEND MRI IN THE NEAR FUTURE FOR FOR COMPLAINTS Medical Decision Making MDM MEDICAL DISCHARGE MAKING BASED ON BASIC LABS AND PAIN MANAGEMENT FOR NECK PAIN. LABS UNREMARKABLE NO IMAGING PERFORMED PATIENT STATES PAIN IS REDUCED DISCHARGED HOME WITH IBUPROFEN AND TOLD TO FOLLOW UP WITH HER PRIMARY CARE DOCTOR FOR MRI AND NEUROSURGICAL REFERRAL DX & DISP Disposition: Discharge Departure Impression: Primary Impression: Neck pain, bilateral posterior Additional Impression: Hypocalcemia Condition: Stable Scripts Ibuprofen (Ibuprofen 800 mg Tab) 800 Mg Tab 800 MG PO Q8H PRN for fever or pain, #30 TAB 0 Refills Prov: THOMPSON MORENO SPLICING MACHINE OPERATOR AUTOMATIC 02/14/25 Additional Instructions: FOLLOW-UP WITH PRIMARY CARE PROVIDER IN 1 TO 2 DAYS. TAKE MEDICATIONS DIRECT ED HERE IN THE EMERGENCY ROOM. OKAY TO CONTINUE HOME MEDICATIONS UNLESS OTHERWISE DISCUSSED DURING YOUR VISIT IN THE EMERGENCY ROOM TODAY. RETURN TO YOUR NEAREST EMERGENCY ROOM IF SYMPTOMS WORSEN OR IF THERE IS NO IMPROVEMENT. CALL 911 IF YOU NEED IMMEDIATE ASSISTANCE. TAKE TYLENOL OR MOTRIN [id number] NEEDED AND IF NO CONTRAINDICATIONS ARE PRESENT. INCREASE ORAL HYDRATION. A WOUND CULTURE OR URINE CULTURE WAS ORDERED HERE IN THE EMERGENCY ROOM DEPARTMENT PLEASE FOLLOW-UP WITH PRIMARY CARE PROVIDER AND ADVISE THEM TO GET REPEAT PORTS FROM OUR FACILITY. IF YOU HAD ANY GREGORY WRAP/SPLINTS THAT WERE APPLIED HERE, PLEASE DO NOT REMOVE THEM UNTIL YOU SEE YOUR PRIMARY CARE OR SPECIALTY. TAKE IBUPROFEN NEEDED FOR PAIN, FOLLOW UP WITH YOUR PRIMARY CARE DOCTOR FOR RECOMMENDED MRI AND NEUROSURGICAL REFERRAL NEEDED Referrals: LATHA AFRRIS MD (PCP) Time of Disposition: 19:55 I have reviewed the case, and I agree with, Diagnosis and Plan THOMPSON MORENO NP February 14, 2025 18:34
[2025-02-14] MEDS: ketOROlac 60 MG VIAL (30MG/ML) IM ONE (18:45)
[2025-02-14] MEDS: CYCLOBENZAPRINE HCL 10 MG TABLET PO ONE (18:45)
[2025-02-14] MEDS: HYDROcodone/APAP 5/325 1 TAB TABLET PO ONE (18:45)
[2025-02-14 19:09] LABS: BASOPHILS # (AUTO) 0.05 K/uL (0.00-0.20); BASOPHILS % (AUTO) 0.6 % (0.0-5.0); EOSINOPHILS # (AUTO) 0.06 K/uL (0.00-0.70); EOSINOPHILS % (AUTO) 0.7 % (0.0-8.0); HEMATOCRIT 33.7 % (36-48); IMMATURE GRANULOCYTE ABSOLUTE 0.03 K/uL (0-1); LYMPHOCYTES # (AUTO) 2.3 K/uL (1.0-4.8); LYMPHOCYTES % (AUTO) 26.1 % (21.0-51.0); MEAN CORPUSCULAR HEMOGLOBIN 27.7 pg (27.0-33.0); MEAN CORPUSCULAR HGB CONC 32.3 g/dL (32.0-36.0); MEAN CORPUSCULAR VOLUME 85.5 fL (79-99); MONOCYTES # (AUTO) 0.5 K/uL (0.1-1.0); MONOCYTES % (AUTO) 5.7 % (3.0-13.0); NEUTROPHILS # (AUTO) 5.8 K/uL (1.8-7.7); NEUTROPHILS % (AUTO) 66.6 % (40.0-77.0); PLATELET COUNT (AUTO) 338 K/uL (130-400); RED BLOOD CELL COUNT(AUTO) 3.94 MIL/uL (4.00-5.50); RED CELL DISTRIBUTION WIDTH 13.6 % (11.0-15.5); WHITE BLOOD COUNT (AUTO) 8.8 K/uL (4.8-10.8)
[2025-02-14 19:15] LABS: CREATININE 0.7 mg/dL (0.5-1.0); POTASSIUM 3.6 mmol/L (3.5-5.1)
[2025-02-14] MEDS ORDERED: IBUP-2077 PO (19:56)
[2025-02-14 20:01] VITALS: BP 145/80; PULSE 70; RESP 19; TEMP 98.3; O2SAT 98
== END 2025-02-14 20:09 | disposition home or self-care (01) ==
LOC: EDH 18:19
DX: M54.2 Cervicalgia (principal); E83.51 Hypocalcemia; Z79.1 Long term (current) use of non-steroidal anti-inflammatories (NSAID)
CPT/HCPCS: 99283; 80048; 85025; 36415; 96372; J1885